=== PATIENT | female | born 1955 | race Caucasian/White ===

== ENCOUNTER 2022-09-14 04:27 | Inpatient (IN) | payer SELFPAY ==
[~2022-09-14 04:27] MED LIST: Acetaminophen 500 MG Tab ONE
[2022-09-14] MEDS ORDERED: Acetaminophen 500 MG Tab PO ONE (05:00)
[2022-09-14] MEDS ORDERED: Sodium Chloride 0.9% 2.5 ML Syringe FLUSH PRN ×2 (05:28→08:21)
[2022-09-14] MEDS ORDERED: Sodium Chloride 0.9% 10 ML Syringe FLUSH PRN ×2 (05:28→08:21)
[2022-09-14] MEDS ORDERED: Sodium Chloride 0.9% 3,000 ML IV ONE (05:28)
[2022-09-14] MEDS ORDERED: cefTRIAXone 1 GM in Sodium Chloride 0.9% 50 ML IV ONE (05:31)
[2022-09-14] MEDS ORDERED: Ibuprofen 600 MG Tab PO ONE (05:43)
[2022-09-14 05:48] LABS: CORONAVIRUS COVID-19 NAA NEGATIVE (NEGATIVE); INFLUENZA A NAA NEGATIVE (NEGATIVE); INFLUENZA B NAA NEGATIVE (NEGATIVE); RESPIRATORY SYNCYTIAL VIR NAA NEGATIVE (NEGATIVE)
[2022-09-14 06:34] LABS: CARBON DIOXIDE,CO2 26.8 mmol/L (21.0-32.0); POTASSIUM,K 3.2 mmol/L (3.5-5.1)
[2022-09-14] MEDS ORDERED: Azithromycin 500 MG in Sodium Chloride 0.9% 250 ML IV ONE (06:48)
[2022-09-14] MEDS ORDERED: Docusate Sodium 100 MG Cap PO PRN (08:21)
[2022-09-14] MEDS ORDERED: Albuterol/Ipratropium 3.0-0.5 MG/3 ML Neb Soln NEB PRN (08:21)
[2022-09-14] MEDS ORDERED: Polyethylene Glycol 3350 Powder 17 GM Packet PO PRN (08:21)
[2022-09-14] MEDS ORDERED: Ondansetron 4 MG/2 ML SDV IVPUSH PRN (08:21)
[2022-09-14] MEDS ORDERED: Potassium Chloride 20 MEQ Tab.ER PO ONE (08:28)
[2022-09-14] MEDS ORDERED: Sodium Chloride 0.9% 1,000 ML IV ONE (09:00)
[2022-09-14] MEDS: Enoxaparin 40 MG/0.4 ML Syringe SUBCUT SCH (09:17)
[2022-09-14] MEDS: Acetaminophen 325 MG Tab PO PRN ×2 (15:28→23:12)
[2022-09-14] MEDS: Ibuprofen 400 MG Tab PO PRN (19:05)
[2022-09-14] MEDS ORDERED: Lisinopril 10 MG Tab PO ONE (22:14)
[2022-09-15] MEDS: Ibuprofen 400 MG Tab PO PRN ×3 (03:58→22:48)
[2022-09-15] MEDS: Azithromycin 500 MG in Sodium Chloride 0.9% 250 ML IV SCH (06:33)
[2022-09-15 07:22] LABS: CARBON DIOXIDE,CO2 25.3 mmol/L (21.0-32.0); POTASSIUM,K 3.1 mmol/L (3.5-5.1)
[2022-09-15] MEDS ORDERED: Potassium Chloride 20 MEQ in Premix Bag 2 BAG IV ONE (08:22)
[2022-09-15] MEDS ORDERED: Potassium Chloride 20 MEQ Tab.ER PO ONE (08:22)
[2022-09-15] MEDS ORDERED: NS with KCl 40mEq 1,000 ML IV ONE (08:45)
[2022-09-15] MEDS: cefTRIAXone 1 GM in Sodium Chloride 0.9% 50 ML IV SCH (09:35)
[2022-09-15] MEDS: Enoxaparin 40 MG/0.4 ML Syringe SUBCUT SCH (09:36)
[2022-09-15] MEDS: Phosphorus #1 250 MG Tab PO SCH ×4 (09:37→23:56)
[2022-09-15] MEDS ORDERED: Albuterol 0.083% 2.5 MG/3 ML Neb Soln NEB PRN (10:37)
[2022-09-15] MEDS ORDERED: Ipratropium 0.02% 0.5 MG/2.5 ML Neb Soln NEB PRN (10:38)
[2022-09-15] MEDS: Lisinopril 10 MG Tab PO SCH (12:28)
[2022-09-15] MEDS: Acetaminophen 325 MG Tab PO PRN ×2 (12:51→23:55)
[2022-09-15] MEDS ORDERED: Ketorolac 30 MG/ML SDV IVPUSH ONE (14:23)
[2022-09-16] MEDS: Phosphorus #1 250 MG Tab PO SCH ×2 (06:11→11:34)
[2022-09-16] MEDS: Azithromycin 500 MG in Sodium Chloride 0.9% 250 ML IV SCH (06:12)
[2022-09-16 07:09] LABS: CARBON DIOXIDE,CO2 29.1 mmol/L (21.0-32.0); POTASSIUM,K 3.6 mmol/L (3.5-5.1)
[2022-09-16] MEDS: Lisinopril 10 MG Tab PO SCH (08:55)
[2022-09-16] MEDS: Enoxaparin 40 MG/0.4 ML Syringe SUBCUT SCH (09:03)
[2022-09-16] MEDS: cefTRIAXone 1 GM in Sodium Chloride 0.9% 50 ML IV SCH (09:03)
[2022-09-16] MEDS: Ibuprofen 400 MG Tab PO PRN (11:34)
== END 2022-09-16 12:15 | disposition home or self-care (01) | DRG 193 ==
LOC: MW.ED 04:27 → MW.MS 06:49
PROVIDERS: ADMIT Internal Medicine; ATTEND Internal Medicine
DX: J18.9 Pneumonia, unspecified organism (principal); J96.01 Acute respiratory failure with hypoxia; Z68.43 Body mass index [BMI] 50.0-59.9, adult; I10 Essential (primary) hypertension; G47.33 Obstructive sleep apnea (adult) (pediatric); E66.01 Morbid (severe) obesity due to excess calories; Z20.822 Contact with and (suspected) exposure to COVID-19; E87.6 Hypokalemia; Z90.49 Acquired absence of other specified parts of digestive tract
CPT/HCPCS: 0241U; 36415; 71045; 71045-26; 80048; 80053; 83605; 83735; 84100; 85025; 87040; 93005; 94660; 96361; 96365; 96367; 99285-25; A9270-GY; J0456; J0696; J1650; J1885; J3480; J3490; J7030; J7050